=== PATIENT | female | born 1970 | race Caucasian/White ===

== ENCOUNTER 2016-12-28 10:11 | Emergency (ER) | payer MEDICAID, OTHER ==
[2016-12-28 10:25] VITALS: BP 160/84
--- NOTE | 2016-12-28 11:11 | EDM.PDOC ---
ED HPI GENERAL MEDICAL PROBLEM - General Chief Complaint: Laceration Stated Complaint: LT POINTER FINGER LAC Time Seen by Provider: 12/28/16 11:01 - History of Present Illness INITIAL COMMENTS - FREE TEXT/NARRATIVE: 46-year-old female presents emergency room with a laceration on her left index finger. This occurred shortly before arrival the patient was at work chopping up some onions and inadvertently and accidentally got the radial tip of her finger. The patient has had minimal bleeding from this. The patient is uncertain as to when her last tetanus shot was. Patient is treated for hypertension and diabetes Left Hand Pain Score (Numeric/FACES): 5 - Related Data Allergies Allergy/AdvReac Type Severity Reaction Status Date / Time divalproex sodium AdvReac Hallucinati Verified 07/05/16 16:14 [From Depakote] ons trazodone AdvReac Drowsiness Verified 07/05/16 16:14 zolpidem tartrate AdvReac Drowsiness Verified 07/05/16 16:14 [From Ambien] Home Meds: Home Meds Benazepril [Lotensin] 10 mg PO BEDTIME 11/18/15 [History] Simvastatin [Zocor] 20 mg PO BEDTIME 11/18/15 [History] Venlafaxine HCl [Venlafaxine ER] 75 mg PO DAILY 11/18/15 [History] Ziprasidone HCl 20 mg PO DAILY 11/18/15 [History] amLODIPine [Norvasc] 5 mg PO BEDTIME 11/18/15 [History] metFORMIN HCl [Metformin HCl] 1,000 mg PO BID 11/18/15 [History] Past Medical History HEENT History: Reports: Impaired Vision Other HEENT History: wears eyeglasses. 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: Musculoskeletal History: Reports: Back Pain, Chronic, Fracture Psychiatric History: Reports: Anxiety, Bipolar, Depression Endocrine/Metabolic History: Reports: Diabetes, Gestational, Diabetes, Type I, IDDM - Infectious Disease History Infectious Disease History: Reports: Chicken Pox, Herpes, Mumps - Past Surgical History Female Surgical History: Reports: Section, Tubal Ligation Social & Family History - Family History Family Medical History: Noncontributory - Tobacco Use Smoking Status *Q: Current Every Day Smoker Years of Tobacco use: 30 Packs/Tins Daily: 0.5 - Caffeine Use Caffeine Use: Reports: Coffee - Recreational Drug Use Recreational Drug Use: No ED ROS GENERAL - Review of Systems Review Of Systems: See Below Constitutional: Reports: No Symptoms Respiratory: Reports: No Symptoms Cardiovascular: Reports: No Symptoms GI/Abdominal: Reports: No Symptoms ED EXAM, SKIN/RASH Exam: See Below Exam Limited By: No Limitations General Appearance: Alert, No Apparent Distress Respiratory/Chest: No Respiratory Distress, Lungs Clear, Normal Breath Sounds Cardiovascular: Regular Rate, Rhythm, No Edema, No Murmur Extremities: Other (Examination of her left index finger shows a 1 cm circular laceration with no stone or remaining skin this is mostly involving the cutaneous tissue the central area has a small area of subcutaneous involvement. A very small piece of the nail plate was removed with this. Patient has intact flexion extension of the distal interphalangeal joint neurovascular status appears to be intact. There is nothing to repair.) Course - Vital Signs Last Recorded V/S: Last Vital Signs Temp 36.8 C 12/28/16 10:22 Pulse 120 H 12/28/16 10:22 Resp 16 12/28/16 10:22 BP 160/84 H 12/28/16 10:22 Pulse Ox 96 12/28/16 10:22 - Re-Assessments/Exams Free Text/Narrative Re-Assessment/Exam: 12/28/16 11:26 No laceration repair is needed at this point x-rays will be of no benefit. The patient will have a sterile nonstick dressing applied to this with lots of antibiotic ointment and this will be changed several times a day Departure - Departure Time of Disposition: 11:27 Disposition: Home, Self-Care 01 Clinical Impression: Finger laceration - Discharge Information Referrals: PCP,Unknown [Primary Care Provider] - Additional Instructions: Return to the emergency room with any questions or problems. This laceration should heal without to much difficulty change the dressing 3 or 4 times a day and after you're hand gets wet wash thoroughly. Apply antibiotic ointment cover with a Telfa dressing and then gently secure this. Follow-up in the Hospital clinic [phone] or with your regular provider for recheck on Friday
[2016-12-28] MEDS ORDERED: Diphtheria,Pertussis(Acell),Tetanus Vaccine 0.5 ML SDV IM ONE (11:21)
== END 2016-12-28 11:58 | disposition home or self-care (01) ==
LOC: JD.ED 10:11
DX: S61.211A Laceration without foreign body of left index finger without damage to nail, initial encounter (principal); Z23 Encounter for immunization; I10 Essential (primary) hypertension; E10.9 Type 1 diabetes mellitus without complications; E78.00 Pure hypercholesterolemia, unspecified; F31.9 Bipolar disorder, unspecified; Z98.51 Tubal ligation status; F17.210 Nicotine dependence, cigarettes, uncomplicated; Z79.899 Other long term (current) drug therapy; Z88.8 Allergy status to other drugs, medicaments and biological substances; W45.8XXA Other foreign body or object entering through skin, initial encounter; Y93.89 Activity, other specified; Y99.0 Civilian activity done for income or pay
CPT/HCPCS: 90471; 90715; 99283; 99283-25

== ENCOUNTER 2017-12-17 15:26 | Emergency (ER) | payer MEDICAID ==
[2017-12-17] MEDS ORDERED: Sodium Chloride 0.9% 10 ML Syringe FLUSH PRN (16:20)
[2017-12-17] MEDS ORDERED: Sodium Chloride 0.9% 1,000 ML IV ONE ×2 (16:21→18:08)
--- NOTE | 2017-12-17 16:40 | EDM.PDOC ---
ED HPI GENERAL MEDICAL PROBLEM - General Chief Complaint: General Stated Complaint: DIZZY Time Seen by Provider: 12/17/17 16:26 Source of Information: Reports: Patient History Limitations: Reports: No Limitations - History of Present Illness INITIAL COMMENTS - FREE TEXT/NARRATIVE: Patient is a 47-year-old female with a history of diabetes who was evaluated at the walk-in clinic today wishing to get a prescription for metformin and amlodipine. Patient's blood sugar was found to be greater than 400 with history of polydipsia and polyuria. Patient was instructed to come to the ED. Patient states she is thirsty with a dry mouth. She has some intermittent dizziness with body position changes. States she never scheduled appointment to get refill of diabetes medications. She has not been checking her blood sugar for quite some time. Its been one year since taking medications. She denies any history of fever, sob, cough, chest pain, abdominal pain, diarrhea, hematuria, painful urination, rash, or any additional complaints. - Related Data Allergies Allergy/AdvReac Type Severity Reaction Status Date / Time divalproex sodium AdvReac Hallucinati Verified 12/17/17 15:50 [From Depakote] ons trazodone AdvReac Drowsiness Verified 12/17/17 15:50 zolpidem tartrate AdvReac Drowsiness Verified 12/17/17 15:50 [From Ambien] Home Meds: Home Meds Benazepril [Lotensin] 10 mg PO BEDTIME 11/18/15 [History] Simvastatin [Zocor] 20 mg PO BEDTIME 11/18/15 [History] Venlafaxine HCl [Venlafaxine ER] 75 mg PO DAILY 11/18/15 [History] Ziprasidone HCl 20 mg PO DAILY 11/18/15 [History] amLODIPine [Norvasc] 5 mg PO BEDTIME 11/18/15 [History] metFORMIN HCl [Metformin HCl] 1,000 mg PO BID 11/18/15 [History] Insulin Glarg,Human.Rec.Analog [Lantus Solostar] 0 unit SQ ASDIRECTED #30 pen [Rx] Past Medical History HEENT History: Reports: Impaired Vision Other HEENT History: wears eyeglasses. 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: Musculoskeletal History: Reports: Back Pain, Chronic, Fracture Psychiatric History: Reports: Anxiety, Bipolar, Depression Endocrine/Metabolic History: Reports: Diabetes, Gestational, Diabetes, Type I, IDDM - Infectious Disease History Infectious Disease History: Reports: Chicken Pox, Herpes, Mumps - Past Surgical History Female Surgical History: Reports: Section, Tubal Ligation Social & Family History - Family History Family Medical History: Noncontributory - Tobacco Use Smoking Status *Q: Current Every Day Smoker Years of Tobacco use: 4 Packs/Tins Daily: 1 - Caffeine Use Caffeine Use: Reports: Soda - Recreational Drug Use Recreational Drug Use: No ED ROS GENERAL - Review of Systems Review Of Systems: See Below Constitutional: Reports: Malaise. Denies: Fever, Chills, Weakness, Fatigue, Decreased Appetite HEENT: Reports: No Symptoms Respiratory: Reports: No Symptoms Cardiovascular: Reports: No Symptoms Endocrine: Reports: Fatigue, High Glucose, Polydypsia, Polyuria GI/Abdominal: Reports: No Symptoms : Reports: Frequency. Denies: Dysuria, Flank Pain, Hematuria, Irregular Menses, Urgency, Urinary Retention Musculoskeletal: Reports: No Symptoms Skin: Reports: No Symptoms Neurological: Reports: Dizziness ED EXAM, GENERAL - Physical Exam Exam: See Below Exam Limited By: No Limitations General Appearance: Alert, WD/WN, No Apparent Distress Eye Exam: Bilateral Eye: EOMI, Normal Inspection, Nystagmus (none noted), PERRL Ears: Hearing Grossly Normal Nose: Normal Inspection Throat/Mouth: Normal Voice, No Airway Compromise, Other (dry mouth) Neck: Normal Inspection, Supple Respiratory/Chest: No Respiratory Distress, Lungs Clear, Normal Breath Sounds, No Accessory Muscle Use, Chest Non-Tender Cardiovascular: Normal Peripheral Pulses, Regular Rate, Rhythm, No Murmur Peripheral Pulses: 2+: Radial (L), Radial (R) GI/Abdominal: Normal Bowel Sounds, Soft, Non-Tender, No Organomegaly, No Distention Extremities: Normal Inspection, Normal Range of Motion, Non-Tender, No Pedal Edema Neurological: Alert, Oriented, CN II-XII Intact, Normal Cognition, No Motor/ Sensory Deficits Psychiatric: Normal Affect, Normal Mood Skin Exam: Warm, Dry, Intact, Normal Color, No Rash Course - Vital Signs Last Recorded V/S: Last Vital Signs Temp 98.1 F 12/17/17 15:47 Pulse 89 12/17/17 20:00 Resp 18 12/17/17 20:00 BP 107/74 12/17/17 20:00 Pulse Ox 96 12/17/17 20:00 Orthostatic Blood Pressure [ 116/69 Standing] Orthostatic Blood Pressure [ 112/70 Sitting] Orthostatic Blood Pressure [ 113/72 Supine] - Orders/Labs/Meds Labs: Laboratory Tests 12/17/17 12/17/17 12/17/17 Range/Units 16:42 16:42 16:53 WBC 10.87 H (3.98-10.04) K/mm3 RBC 4.96 (3.98-5.22) M/mm3 Hgb 14.8 (11.2-15.7) gm/L Hct 43.0 (34.1-44.9) % MCV 86.7 (79.4-94.8) fl MCH 29.8 (25.6-32.2) pg MCHC 34.4 (32.2-35.5) g/dl RDW Std Deviation 40.0 (36.4-46.3) fL Plt Count 264 (182-369) K/mm3 MPV 10.8 (9.4-12.3) fl Neutrophils % (Manual) 74 H (40-60) % Band Neutrophils % 0 (0-10) % Lymphocytes % (Manual) 25 (20-40) % Atypical Lymphs % 0 % Monocytes % (Manual) 1 L (2-10) % Eosinophils % (Manual) 0 L (0.7-5.8) % Basophils % (Manual) 0 L (0.1-1.2) Platelet Estimate Adequate RBC Morph Comment Normal VBG pH (7.30-7.40) Sodium (136-145) mEq/L Potassium (3.5-5.1) mEq/L Chloride (98-107) mEq/L Carbon Dioxide (21-32) mEq/L Anion Gap (5-15) BUN (7-18) mg/dL Creatinine (0.55-1.02) mg/dL Est Cr Clr Drug Dosing mL/min Estimated GFR (MDRD) (>60) mL/min BUN/Creatinine Ratio (14-18) Glucose (74-106) mg/dL POC Glucose (70-105) mg/dL Hemoglobin A1c (4.50-6.20) % Serum Osmolality (280-300) mosm/kg Calcium (8.5-10.1) mg/dL Magnesium (1.8-2.4) mg/dl Total Bilirubin (0.2-1.0) mg/dL AST (15-37) U/L ALT (14-59) U/L Alkaline Phosphatase (46-116) U/L Troponin I (0.00-0.056) ng/mL C-Reactive Protein (<1.0) mg/dL Total Protein (6.4-8.2) g/dl Albumin (3.4-5.0) g/dl Globulin gm/dL Albumin/Globulin Ratio (1-2) TSH 3rd Generation (0.358-3.74) uIU/mL Urine Color Yellow (Yellow) Urine Appearance Clear (Clear) Urine pH 6.0 (5.0-8.0) Ur Specific [place] <=1.005 (1.005-1.030) Urine Protein Negative (Negative) Urine Glucose (UA) 2+ H (Negative) Urine Ketones Negative (Negative) Urine Occult Blood Negative (Negative) Urine Nitrite Negative (Negative) Urine Bilirubin Negative (Negative) Urine Urobilinogen 0.2 (0.2-1.0) Ur Leukocyte Esterase Negative (Negative) Urine RBC 0-5 (0-5) /hpf Urine WBC 0-5 (0-5) /hpf Ur Epithelial Cells 0-5 (0-5) /hpf Urine Bacteria Occasional (FEW) /hpf Urine Mucus Not seen (FEW) /hpf Urine HCG, Qual Negative (NEGATIVE) Ketones (0.0-0.3) mM 12/17/17 12/17/17 12/17/17 Range/Units 16:53 16:53 16:53 WBC (3.98-10.04) K/mm3 RBC (3.98-5.22) M/mm3 Hgb (11.2-15.7) gm/L Hct (34.1-44.9) % MCV (79.4-94.8) fl MCH (25.6-32.2) pg MCHC (32.2-35.5) g/dl RDW Std Deviation (36.4-46.3) fL Plt Count (182-369) K/mm3 MPV (9.4-12.3) fl Neutrophils % (Manual) (40-60) % Band Neutrophils % (0-10) % Lymphocytes % (Manual) (20-40) % Atypical Lymphs % % Monocytes % (Manual) (2-10) % Eosinophils % (Manual) (0.7-5.8) % Basophils % (Manual) (0.1-1.2) Platelet Estimate RBC Morph Comment VBG pH (7.30-7.40) Sodium 127 L (136-145) mEq/L Potassium 3.6 (3.5-5.1) mEq/L Chloride 92 L (98-107) mEq/L Carbon Dioxide 23 (21-32) mEq/L Anion Gap 15.6 H (5-15) BUN 11 (7-18) mg/dL Creatinine 0.9 (0.55-1.02) mg/dL Est Cr Clr Drug Dosing 66.01 mL/min Estimated GFR (MDRD) > 60 (>60) mL/min BUN/Creatinine Ratio 12.2 L (14-18) Glucose 622 H* (74-106) mg/dL POC Glucose (70-105) mg/dL Hemoglobin A1c 11.50 H (4.50-6.20) % Serum Osmolality 305 H (280-300) mosm/kg Calcium 9.2 (8.5-10.1) mg/dL Magnesium (1.8-2.4) mg/dl Total Bilirubin 0.3 (0.2-1.0) mg/dL AST 8 L (15-37) U/L ALT 20 (14-59) U/L Alkaline Phosphatase 148 H (46-116) U/L Troponin I (0.00-0.056) ng/mL C-Reactive Protein 0.3 (<1.0) mg/dL Total Protein 7.6 (6.4-8.2) g/dl Albumin 3.5 (3.4-5.0) g/dl Globulin 4.1 gm/dL Albumin/Globulin Ratio 0.9 L (1-2) TSH 3rd Generation (0.358-3.74) uIU/mL Urine Color (Yellow) Urine Appearance (Clear) Urine pH (5.0-8.0) Ur Specific [place] (1.005-1.030) Urine Protein (Negative) Urine Glucose (UA) (Negative) Urine Ketones (Negative) Urine Occult Blood (Negative) Urine Nitrite (Negative) Urine Bilirubin (Negative) Urine Urobilinogen (0.2-1.0) Ur Leukocyte Esterase (Negative) Urine RBC (0-5) /hpf Urine WBC (0-5) /hpf Ur Epithelial Cells (0-5) /hpf Urine Bacteria (FEW) /hpf Urine Mucus (FEW) /hpf Urine HCG, Qual (NEGATIVE) Ketones 0.23 (0.0-0.3) mM 12/17/17 12/17/17 12/17/17 Range/Units 16:53 17:00 19:25 WBC (3.98-10.04) K/mm3 RBC (3.98-5.22) M/mm3 Hgb (11.2-15.7) gm/L Hct (34.1-44.9) % MCV (79.4-94.8) fl MCH (25.6-32.2) pg MCHC (32.2-35.5) g/dl RDW Std Deviation (36.4-46.3) fL Plt Count (182-369) K/mm3 MPV (9.4-12.3) fl Neutrophils % (Manual) (40-60) % Band Neutrophils % (0-10) % Lymphocytes % (Manual) (20-40) % Atypical Lymphs % % Monocytes % (Manual) (2-10) % Eosinophils % (Manual) (0.7-5.8) % Basophils % (Manual) (0.1-1.2) Platelet Estimate RBC Morph Comment VBG pH 7.36 (7.30-7.40) Sodium (136-145) mEq/L Potassium (3.5-5.1) mEq/L Chloride (98-107) mEq/L Carbon Dioxide (21-32) mEq/L Anion Gap (5-15) BUN (7-18) mg/dL Creatinine (0.55-1.02) mg/dL Est Cr Clr Drug Dosing mL/min Estimated GFR (MDRD) (>60) mL/min BUN/Creatinine Ratio (14-18) Glucose (74-106) mg/dL POC Glucose 251 H (70-105) mg/dL Hemoglobin A1c (4.50-6.20) % Serum Osmolality (280-300) mosm/kg Calcium (8.5-10.1) mg/dL Magnesium 2.0 (1.8-2.4) mg/dl Total Bilirubin (0.2-1.0) mg/dL AST (15-37) U/L ALT (14-59) U/L Alkaline Phosphatase (46-116) U/L Troponin I < 0.017 (0.00-0.056) ng/mL C-Reactive Protein (<1.0) mg/dL Total Protein (6.4-8.2) g/dl Albumin (3.4-5.0) g/dl Globulin gm/dL Albumin/Globulin Ratio (1-2) TSH 3rd Generation 0.403 (0.358-3.74) uIU/mL Urine Color (Yellow) Urine Appearance (Clear) Urine pH (5.0-8.0) Ur Specific [place] (1.005-1.030) Urine Protein (Negative) Urine Glucose (UA) (Negative) Urine Ketones (Negative) Urine Occult Blood (Negative) Urine Nitrite (Negative) Urine Bilirubin (Negative) Urine Urobilinogen (0.2-1.0) Ur Leukocyte Esterase (Negative) Urine RBC (0-5) /hpf Urine WBC (0-5) /hpf Ur Epithelial Cells (0-5) /hpf Urine Bacteria (FEW) /hpf Urine Mucus (FEW) /hpf Urine HCG, Qual (NEGATIVE) Ketones (0.0-0.3) mM Meds: Medications Discontinued Medications Generic Name Dose Route Start Last Admin Trade Name Jenelle PRN Reason Stop Dose Admin Sodium Chloride 1,000 mls @ 999 mls/hr 12/17/17 16:21 12/17/17 16:59 Normal Saline IV 12/17/17 17:21 999 mls/hr ONETIME ONE Administration Sodium Chloride 1,000 mls @ 999 mls/hr 12/17/17 18:08 12/17/17 18:30 Normal Saline IV 12/17/17 19:08 999 mls/hr ONETIME ONE Administration Insulin Human Regular Confirm 12/17/17 18:23 12/17/17 18:33 Humulin R Administered 12/17/17 18:24 Not Given Dose 300 unit .ROUTE .STK-MED ONE Insulin Human Regular 10 unit 12/17/17 18:32 12/17/17 18:34 Humulin R IV 12/17/17 18:33 10 units ONETIME ONE Administration Sodium Chloride 10 ml 12/17/17 16:20 12/17/17 17:00 Saline Flush FLUSH 10 ml ASDIRECTED PRN Administration Keep Vein Open - Re-Assessments/Exams Free Text/Narrative Re-Assessment/Exam: IV established with normal saline 2 L. Initial blood sugar on admission was >400. Initial blood work will include: CBC, chem 14, CRP, A1c, serum osmotic, HCG, UA , pH venous, ketones, hCG, orthostatic vitals, troponin, mg TSH, and EKG. Orthostatic vitals: Negative. EKG: Sinus rhythm with no acute ST changes noted. Labs reviewed: Sodium 127, potassium 3.6, AG 15.6, creatinine 0.7, glucose 622, hemoglobin A1c is 11.5, serum osmolality through L5, magnesium 2, troponin within normal limits, TSH 0.403. CRP within normal limits. UA positive for sugar. HCG negative. Ketone 0.23. Patient is not ketotic. Venous pH 7.36. CBC did not reveal any concerning findings. At this point I will order a second liter of normal saline. Patient is not ketotic thus will not require IV infusion of insulin. I have ordered 10 units of regular insulin. We have contacted the patient's pharmacy to get her previous med list. Previous med list reviewed. Clarified with patient. 193 Bedside glucose 251. Patient will be discharged home with prescription for Lantus and also metformin. She will need to see her PCP for prescription for additional diabetic medications. Departure - Departure Time of Disposition: 19:43 Disposition: Home, Self-Care 01 Condition: Good Clinical Impression: Hyperglycemia Hyperglycemia due to type 2 diabetes mellitus Qualifiers: Diabetes mellitus correction insulin use: with terminal gauger use Qualified Code(s): E11.65 - Type 2 diabetes mellitus with hyperglycemia - Discharge Information Prescriptions: Insulin Glarg,Human.Rec.Analog [Lantus Solostar] 0 unit SQ ASDIRECTED #30 pen Instructions: Type 2 Diabetes Mellitus, Diagnosis, Adult, Insulin Treatment for Diabetes, Form - Daily Diabetes Record, Insulin Injection Instructions, Using Insulin Pens, Adult, Type 2 Diabetes Mellitus, Self Care, Adult, Blood Glucose Monitoring, Adult, Diabetes Mellitus and Exercise, Diabetes Mellitus and Nutrition Referrals: Ingrid Kumari PA-C [Primary Care Provider] - Forms: ED Department Discharge, ED Return to Work/School Form Additional Instructions: Taking metformin and Lantus as prescribed. Please call and make an appointment to see your PCP for further management of diabetes and additional prescriptions. Stick with a diabetic friendly diet. Check blood sugars 3 times a day. Push the fluids. Return to the E.D. if you develop any new or worsening symptoms.
[2017-12-17] MEDS ORDERED: Insulin Regular, Human 100 Units/ML 3 ML Vial ONE (18:23)
[2017-12-17] MEDS ORDERED: Insulin Regular, Human 100 Units/ML 3 ML Vial IV ONE (18:32)
[2017-12-17 20:50] VITALS: BP 107/74
[2017-12-18] MEDS ORDERED: Insulin Regular, Human 100 Units/ML 3 ML Vial IV ONE (18:13)
== END 2017-12-17 20:05 | disposition home or self-care (01) ==
LOC: JD.ED 15:26
DX: E11.65 Type 2 diabetes mellitus with hyperglycemia (principal); I10 Essential (primary) hypertension; F17.210 Nicotine dependence, cigarettes, uncomplicated; Z88.8 Allergy status to other drugs, medicaments and biological substances; Z79.899 Other long term (current) drug therapy
CPT/HCPCS: 36415; 80053; 81001; 81025; 82009; 82800; 82962; 83036; 83735; 83930; 84443; 84484; 85007; 85027; 86140; 93005; 96361; 96374; 99284; J7040; J7050

== ENCOUNTER 2021-12-04 16:51 | Emergency (ER) | payer BC, MEDICAID | END 2021-12-04 17:45 | disposition left against medical advice (07) | LOC: JD.ED 16:51 | DX: Z53.21 Procedure and treatment not carried out due to patient leaving prior to being seen by health care provider (principal) ==

== ENCOUNTER 2023-08-10 08:30 | Emergency (ER) | payer MEDICAID ==
[2023-08-10] MEDS: Sodium Chloride 0.9% 10 ML Syringe FLUSH PRN (08:46)
[2023-08-10 08:56] LABS: BASOPHILS ABSOLUTE AUTO 0.1 K/mm3 (0.0-0.2); EOSINOPHILS ABSOLUTE AUTO 0.2 K/mm3 (0.0-0.4); EOSINOPHILS PERCENT AUTO 3.4 % (0.0-6.0); HEMOGLOBIN 13.6 gm/dl (12.0-16.0); IMMATURE GRAN ABSOLUTE AUTO 0.02 K/mm3 (0.00-0.05); IMMATURE GRAN PERCENT AUTO 0.3 % (0.0-0.4); LYMPHOCYTES ABSOLUTE AUTO 2.1 K/mm3 (1.0-4.8); LYMPHOCYTES PERCENT AUTO 36.6 % (24.0-44.0); MEAN CORPUSCULAR HEMOGLOBIN 28.8 pg (28.0-32.0); MEAN CORPUSCULAR HGB CONC 32.4 g/dl (32.0-36.0); MEAN CORPUSCULAR VOLUME 88.8 fl (83.0-99.0); MEAN PLATELET VOLUME 9.4 fl (9.4-12.3); MONOCYTES ABSOLUTE AUTO 0.4 K/mm3 (0.0-0.8); MONOCYTES PERCENT AUTO 6.2 % (0.0-8.0); NEUTROPHILS ABSOLUTE AUTO 3.1 K/mm3 (1.8-7.7); NEUTROPHILS PERCENT AUTO 52.5 % (41.0-71.0); PLATELET COUNT,PLT 223 K/mm3 (150-400); RED BLOOD CELL COUNT 4.73 M/mm3 (4.10-5.30); WHITE BLOOD CELL COUNT,WBC 5.82 K/mm3 (3.9-11.3)
[2023-08-10 09:19] LABS: ALANINE AMINOTRANSFERASE,ALT 32 U/L (14-59); ALBUMIN 3.7 g/dl (3.4-5.0); ALKALINE PHOSPHATASE 96 U/L (46-116); ANION GAP 14.6 (5-15); ASPARTATE AMNIOTRANSFERASE,AST 14 U/L (15-37); BILIRUBIN TOTAL 0.2 mg/dL (0.2-1.0); BLOOD UREA NITROGEN,BUN 11 mg/dL (7-18); BUN/CREATININE RATIO 13.8 (14-18); CALCIUM 9.1 mg/dL (8.5-10.1); CARBON DIOXIDE,CO2 29 mEq/L (21-32); CHLORIDE,CL 105 mEq/L (98-107); CREATININE 0.8 mg/dL (0.55-1.02); ESTIMATED GFR 88 mL/min (>60); GLUCOSE RANDOM 125 mg/dL (70-99); POTASSIUM,K 3.6 mEq/L (3.5-5.1); PROTEIN TOTAL,TP 7.3 g/dl (6.4-8.2); SODIUM,NA 145 mEq/L (136-145); TROPONIN I HIGH SENSITIVITY 5 pg/mL (<=51)
[2023-08-10] MEDS: Iopamidol 755 Mg/ML 100 ML Bottle IVPUSH ONE (10:01)
[2023-08-10] MEDS: Sodium Chloride 0.9% 100 ML IV SCH (10:01)
[2023-08-10 11:13] LABS: APPEARANCE,URINE CLEAR (Clear); BILIRUBIN,URINE NEGATIVE (Negative); COLOR,URINE YELLOW (Yellow); GLUCOSE,URINE 2+ (Negative); KETONES,URINE NEGATIVE (Negative); LEUKOCYTE ESTERASE,URINE NEGATIVE (Negative); NITRITE,URINE NEGATIVE (Negative); OCCULT BLOOD,URINE NEGATIVE (Negative); PROTEIN,URINE NEGATIVE (Negative); UROBILINOGEN,URINE 0.2 (0.2-1.0)
[2023-08-10 17:30] VITALS: BP 165/88; PULSE 99
== END 2023-08-10 10:55 ==
LOC: JD.ED 08:30
DX: R29.810 Facial weakness (principal); R53.1 Weakness; I10 Essential (primary) hypertension; E78.00 Pure hypercholesterolemia, unspecified; E10.9 Type 1 diabetes mellitus without complications; Z79.899 Other long term (current) drug therapy; Z88.8 Allergy status to other drugs, medicaments and biological substances; Z79.84 Long term (current) use of oral hypoglycemic drugs; Z79.4 Long term (current) use of insulin
CPT/HCPCS: 36415; 70450; 70496; 70498; 71045; 80053; 81003; 82947; 84484; 85025; 93005; 99285; J3490; Q9967

== ENCOUNTER 2025-01-15 01:42 | Emergency (ER) | payer MEDICAID ==
[2025-01-15] MEDS: Ondansetron 4 MG Tab.DIS PO ONE (02:35)
[2025-01-15 02:55] VITALS: BP 144/69; PULSE 95
== END 2025-01-15 03:00 | disposition home or self-care (01) ==
LOC: JD.ED 01:42
DX: A05.9 Bacterial foodborne intoxication, unspecified (principal); I10 Essential (primary) hypertension; E78.00 Pure hypercholesterolemia, unspecified; E10.9 Type 1 diabetes mellitus without complications; F17.210 Nicotine dependence, cigarettes, uncomplicated; Z88.8 Allergy status to other drugs, medicaments and biological substances; Z79.899 Other long term (current) drug therapy; Z79.84 Long term (current) use of oral hypoglycemic drugs
CPT/HCPCS: 99283; A9270

== ENCOUNTER 2025-03-03 04:02 | Emergency (ER) | payer MEDICAID ==
[2025-03-03] MEDS ORDERED: Sodium Chloride 0.9% 10 ML Syringe FLUSH PRN (04:32)
[2025-03-03 05:05] LABS: BASOPHILS ABSOLUTE AUTO 0.1 K/mm3 (0.0-0.2); BASOPHILS PERCENT AUTO 1.1 % (0.0-1.0); EOSINOPHILS ABSOLUTE AUTO 0.2 K/mm3 (0.0-0.4); EOSINOPHILS PERCENT AUTO 2.5 % (0.0-6.0); IMMATURE GRAN ABSOLUTE AUTO 0.04 K/mm3 (0.00-0.05); IMMATURE GRAN PERCENT AUTO 0.5 % (0.0-0.4); LYMPHOCYTES ABSOLUTE AUTO 2.3 K/mm3 (1.0-4.8); LYMPHOCYTES PERCENT AUTO 27.4 % (24.0-44.0); MEAN PLATELET VOLUME 10.2 fl (9.4-12.3); MONOCYTES ABSOLUTE AUTO 0.7 K/mm3 (0.0-0.8); MONOCYTES PERCENT AUTO 8.5 % (0.0-8.0); NEUTROPHILS ABSOLUTE AUTO 5.1 K/mm3 (1.8-7.7); NEUTROPHILS PERCENT AUTO 60.0 % (41.0-71.0); NRBC ABSOLUTE 0.00 (0.00-0.02); NRBC PERCENT 0.0 % (0.0-0.2); PLATELET COUNT,PLT 219 K/mm3 (150-400); RED BLOOD CELL COUNT 4.42 M/mm3 (4.10-5.30); WHITE BLOOD CELL COUNT,WBC 8.55 K/mm3 (3.9-11.3)
[2025-03-03 05:25] LABS: LACTIC ACID 1.8 mmol/L (0.4-2.0)
[2025-03-03 05:31] LABS: A/G RATIO 1.0 (1-2); ALANINE AMINOTRANSFERASE,ALT 32.0 U/L (14-59); ASPARTATE AMNIOTRANSFERASE,AST 14.0 U/L (15-37); BILIRUBIN TOTAL 0.2 mg/dL (0.2-1.0); BLOOD UREA NITROGEN,BUN 6.0 mg/dL (7-18); CARBON DIOXIDE,CO2 30.0 mEq/L (21-32); CHLORIDE,CL 103.0 mEq/L (98-107); CREATININE 0.7 mg/dL (0.55-1.02); EST CRCL DRUG DOSING (CG) 78.41 mL/min; ESTIMATED GFR 102.0 mL/min (>60); GLUCOSE RANDOM 252.0 mg/dL (70-99); PHOSPHORUS 3.1 mg/dL (2.6-4.7); POTASSIUM,K 3.9 mEq/L (3.5-5.1); PROTEIN TOTAL,TP 6.6 g/dl (6.4-8.2); SODIUM,NA 141.0 mEq/L (136-145); TSH 0.556 uIU/mL (0.358-3.74)
[2025-03-03 05:42] LABS: APPEARANCE,URINE CLEAR (Clear); GLUCOSE,URINE 2+ (Negative); OCCULT BLOOD,URINE NEGATIVE (Negative)
[2025-03-03 11:35] VITALS: BP 122/84; PULSE 78
== END 2025-03-03 10:00 | disposition home or self-care (01) ==
LOC: JD.ED 04:02
DX: F41.9 Anxiety disorder, unspecified (principal); I10 Essential (primary) hypertension; E78.00 Pure hypercholesterolemia, unspecified; E10.9 Type 1 diabetes mellitus without complications; Z88.8 Allergy status to other drugs, medicaments and biological substances; Z79.84 Long term (current) use of oral hypoglycemic drugs; Z79.899 Other long term (current) drug therapy
CPT/HCPCS: 36415; 80053; 81003; 83605; 83735; 84100; 84443; 85025; 99284; A9270; 99283